=== PATIENT | male | born 1990 | race American Indian/Alaskan Native ===

== ENCOUNTER 2017-09-11 00:57 | Emergency (ER) | payer SELFPAY ==
[2017-09-11 02:03] VITALS: BP 108/67
[2017-09-11] MEDS ORDERED: XYLOCAINE 1% MPF 5 mL INFILTRATI ONE (05:28)
[2017-09-11] MEDS ORDERED: ROCEPHIN IM ONE (05:28)
[2017-09-11] MEDS ORDERED: MOTRIN PO ONE (05:28)
--- NOTE | 2017-09-11 05:29 | Emergency Department Report ---
- General Chief complaint: Skin/Abscess/Foreign Body Stated complaint: FLUIDCHEST FROM NIPPLE PIERCING Time Seen by Provider: 09/11/17 04:26 Source: patient, family Mode of arrival: Ambulatory Limitations: No Limitations - History of Present Illness Initial comments: Patient reports that he had nipple ring in for 4 years and he has injury at the gym and differing came out and he had soreness to the side but has been progressively getting worse over the last 4 days. Positive for pain, swelling, redness. Negative fever or chills, negative shortness of breath or chest pain. Positive for chest wall pain. Denies taking any medication and reports pain is 3-4 at 10. Pain only with touch and and no pain without touch. MD complaint: abscess/boil Onset/Timin -: days(s) Tetanus Up to Date: no Location: chest (right breast) Severity: mild Severity scale (0 -10): 4 Quality: other (sore) Consistency: intermittent Improves with: rest Worsens with: palpation Context: other (nipple ring injury) Associated symptoms: denies other symptoms Treatments Prior to Arrival: bandages - Related Data Previous Rx's Medication Instructions Recorded Last Taken Type Cephalexin [Keflex] 500 mg PO Q8HR 10 Days #30 cap 09/11/17 Unknown Rx Ibuprofen [Motrin] 600 mg PO Q8H PRN #12 tablet 09/11/17 Unknown Rx Sulfamethoxazole/Trimethoprim 1 each PO BID 10 Days #20 tablet 09/11/17 Unknown Rx [Bactrim DS TAB] Allergies Allergy/AdvReac Type Severity Reaction Status Date / Time No Known Allergies Allergy Verified 11/21/13 00:25 Abscess Boil HPI - HPI Chief Complaint: Skin/Abscess/Foreign Body Stated Complaint: FLUIDCHEST FROM NIPPLE PIERCING Time Seen by Provider: 09/11/17 04:26 Home Medications: Previous Rx's Medication Instructions Recorded Last Taken Type Cephalexin [Keflex] 500 mg PO Q8HR 10 Days #30 cap 09/11/17 Unknown Rx Ibuprofen [Motrin] 600 mg PO Q8H PRN #12 tablet 09/11/17 Unknown Rx Sulfamethoxazole/Trimethoprim 1 each PO BID 10 Days #20 tablet 09/11/17 Unknown Rx [Bactrim DS TAB] Allergies/Adverse Reactions: Allergies Allergy/AdvReac Type Severity Reaction Status Date / Time No Known Allergies Allergy Verified 11/21/13 00:25 ED Review of Systems ROS: Stated complaint: FLUIDCHEST FROM NIPPLE PIERCING Other details as noted in HPI Constitutional: denies: chills, fever ENT: denies: ear pain, throat pain Respiratory: denies: cough, shortness of breath, SOB with exertion, SOB at rest , stridor, wheezing Cardiovascular: other (chest wall pain). denies: chest pain, palpitations, edema, syncope Endocrine: no symptoms reported Gastrointestinal: denies: nausea, vomiting Musculoskeletal: other (chest wall pain). denies: back pain, joint swelling, arthralgia Skin: other (redness, swelling, boil to right breast). denies: rash, lesions Neurological: denies: headache ED Past Medical Hx - Past Medical History Previous Medical History?: Yes Hx Asthma: Yes - Surgical History Past Surgical History?: No - Family History Family history: hypertension - Social History Smoking Status: Current Every Day Smoker Substance Use Type: Alcohol, Marijuana Other Social History: Patient is single and lives with family - Medications Home Medications: Home Medications Medication Instructions Recorded Confirmed Last Taken Type Cephalexin [Keflex] 500 mg PO Q8HR 10 Days #30 cap 09/11/17 Unknown Rx Ibuprofen [Motrin] 600 mg PO Q8H PRN #12 tablet 09/11/17 Unknown Rx Sulfamethoxazole/Trimethoprim 1 each PO BID 10 Days #20 tablet 09/11/17 Unknown Rx [Bactrim DS TAB] ED Physical Exam - General Limitations: No Limitations General appearance: alert, in no apparent distress - Head Head exam: Present: atraumatic, normocephalic, normal inspection - Eye Eye exam: Present: normal appearance, PERRL, EOMI Pupils: Present: normal accommodation - ENT ENT exam: Present: normal exam, normal orophraynx, mucous membranes moist - Neck Neck exam: Present: normal inspection, full ROM, other (no C-spine tenderness). Absent: tenderness, lymphadenopathy - Respiratory Respiratory exam: Present: normal lung sounds bilaterally, chest wall tenderness (tenderness to palpate right breast at nipple and areola.). Absent: respiratory distress, wheezes, rales, rhonchi, stridor, accessory muscle use, decreased breath sounds, prolonged expiratory - Cardiovascular Cardiovascular Exam: Present: normal rhythm, bradycardia (asymptomatic). Absent : systolic murmur, diastolic murmur - GI/Abdominal GI/Abdominal exam: Present: soft, normal bowel sounds. Absent: distended, tenderness, guarding, rebound, rigid - Extremities Exam Extremities exam: Present: normal inspection, full ROM, normal capillary refill , other (no clubbing, cyanosis or edema. +2 pulses to all extremities.). Absent: tenderness, pedal edema, joint swelling, calf tenderness - Back Exam Back exam: Present: normal inspection, full ROM, other (ambulates without any difficulties). Absent: tenderness, CVA tenderness (R), CVA tenderness (L), muscle spasm, paraspinal tenderness, vertebral tenderness, rash noted - Neurological Exam Neurological exam: Present: alert, oriented X3, normal gait - Psychiatric Psychiatric exam: Present: normal affect, normal mood - Skin Skin exam: Present: warm, dry, rash, erythema, other (abscess and cellulitis right breast) - Expanded Skin Exam Expanded Type of lesion: Present: abscess (erythema) Distribution of rash: chest (right breast areola and nipple) Description of rash: Present: tenderness, erythematous, swelling, fluctuant, indurated. Absent: bullous, petechial, purpuic, crusting, discharge 1 - Patient with abscess cellulitis to right areola and nipple. Tender to palpate positive induration with some air fluctuance. 3x 3 cm area of induration below one by one area of cellulitis. ED Course Vital Signs 09/11/17 09/11/17 01:50 06:16 Temperature 98.4 F Pulse Rate 57 L Respiratory 18 18 Rate Blood Pressure 108/67 O2 Sat by Pulse 98 Oximetry - Reevaluation(s) Reevaluation #1: 09/11/17 07:20 Patient given Rocephin 1 g IM for cellulitis and abscess to right nipple and Areola without any adverse reaction. He was also given Motrin 800 mg by mouth for pain. Pain is controlled. Patient is to receive Boostrix 0.5 mL prior to discharge. - I & D Right Breast Type of Procedure: Complex Site: right breast nipple and Areola Blade Size: 11 I & D Procedure: betadine prep, sterile drapes applied, sterile dressing applied , gauze wick placed Progress: Procedure: Patient with abscess and cellulitis to right nipple and Areola 3 x 3 cm. Under sterile procedure area cleansed with iodine followed by normal saline. One cc of Marcaine 0.25% instilled around the plan area low. #11 blade scalpel used to make less than 0.25 cm incision. Noted large amount of pus from side after incision made. Additional pus expressed from site. Patient still with some indurated area at his areola. Area packed with iodoform packing and sterile dry dressing placed inside. Tetanus vaccine updated and patient to return to the emergency room in 4 days for recheck and removal of packing. - Laceration /Wound Repair Right Breast Wound Location: chest (Rt breast at nipple and Areola) ED Medical Decision Making - Medical Decision Making ED course: Patient and with abscess and cellulitis to his right nipple in the area light that has been ongoing for about 4 days. He said he had nipple appears thin for over 4 years and he was in the gym and had injury and nipple piercing came out and he was to keep the area clean and dry but it became infected. He says it is getting worse and this why he is here today to get some help. Physical findings for 3 cm area that is fluctuant to nipple and indurated without any fluctuance to area light area. Please refer to procedure note for detail on incision and drainage. Patient was given Motrin 800 mg by mouth for pain, Rocephin 1 g by IM for infection and booster 0.5 mL given to update tetanus. I discussed the patient that he is to keep affected area clean and dry and I also discussed diagnosis and treatment plan with him. He knows he will need to apply warm compresses to affected side 3-4 times a day to facilitate soft then. He was instructed not to take packing out of incision that was made. Patient voiced understanding of teaching and discharged home a prescription for Bactrim DS, Keflex and Motrin. I also instructed him to follow up with [facility] tomorrow. Critical care attestation.: If time is entered above; I have spent that time in minutes in the direct care of this critically ill patient, excluding procedure time. ED Disposition Clinical Impression: Cellulitis of breast, Abscess of right breast, Encounter for incision and drainage procedure, Chest wall pain Disposition: [id number] TO HOME OR SELFCARE Is pt being admited?: No Does the pt Need Aspirin: No Condition: Stable Instructions: Breast Abscess Drainage (ED), Cellulitis (ED), Abscess Incision and Drainage (ED), Acute Wound Care (ED), Musculoskeletal Pain (ED) Additional Instructions: Take antibiotic as prescribed Follow-up with your primary care physician in 2 days Keep affected area clean and dry. Apply warm compresses to affected site 3-4 times a day to facilitate drainage of abscess Followed discharge instruction on acute wound care . Please return to emergency room if you develop increasing redness, streaking, fever, swelling, worsening pain otherwise follow-up at primary care physician and return to emergency room in 4 days to have packing in removed. Prescriptions: Cephalexin [Keflex] 500 mg PO Q8HR 10 Days #30 cap Ibuprofen [Motrin] 600 mg PO Q8H PRN #12 tablet PRN Reason: Pain Sulfamethoxazole/Trimethoprim [Bactrim DS TAB] 1 each PO BID 10 Days #20 tablet Referrals: PRIMARY CARE, [Primary Care Provider] - 09/12/17 [facility] [Outside] - 09/12/17 return to ,emergency room [Other] - 3-5 Days (In 4 days for removal of packing in an reevaluation of abscess.) Forms: Work/School Release Form(ED)
[2017-09-11] MEDS ORDERED: BOOSTRIX IM ONE (07:20)
== END 2017-09-11 08:04 | disposition home or self-care (01) ==
LOC: EDBD → ED 00:57
DX: N61.1 Abscess of the breast and nipple (principal); R07.89 Other chest pain; J45.909 Unspecified asthma, uncomplicated; F17.200 Nicotine dependence, unspecified, uncomplicated
CPT/HCPCS: 19020; 90471; 90715; 96372; 99282; J0696

== ENCOUNTER 2017-09-15 12:07 | Emergency (ER) | payer SELFPAY ==
[2017-09-15 13:22] VITALS: BP 136/73
--- NOTE | 2017-09-15 15:55 | Emergency Department Report ---
ED Recheck HPI - General Chief Complaint: Laceration/Recheck/Suture Stated Complaint: WOUND CHECK Time Seen by Provider: 09/15/17 15:46 Source: patient Mode of arrival: Ambulatory Limitations: No Limitations - History of Present Illness Initial Comments: This is a 27-year-old male nontoxic, well nourished in appearance, no acute signs of distress presents to the ED fore abscess packing removal. Patient was seen on 09/11/2017 and an incision and drainage has been performed and a 1/4 packing has been placed. PAtient stated that he is still taking antibiotics that was prescribed to him. Patient stated swelling has decreased. Patient denies any chest pain, shortness of breathe, fever, chills, headache, nausea, vomiting, numbness or tingling. Patient denies any allergies or PMH. MD Complaint: wound re-check Initial Visit For: abscess Returns Today for: wound recheck Symptoms Since Prior Visit: no new symptoms, improved Context: planned re-check Associated Symptoms: none. denies: fever, chills, chest pain, shortness of breath, rash, malaise, nasuea, abdominal pain - Related Data Previous Rx's Medication Instructions Recorded Last Taken Type Cephalexin [Keflex] 500 mg PO Q8HR 10 Days #30 cap 09/11/17 Unknown Rx Ibuprofen [Motrin] 600 mg PO Q8H PRN #12 tablet 09/11/17 Unknown Rx Sulfamethoxazole/Trimethoprim 1 each PO BID 10 Days #20 tablet 09/11/17 Unknown Rx [Bactrim DS TAB] Allergies Allergy/AdvReac Type Severity Reaction Status Date / Time No Known Allergies Allergy Verified 11/21/13 00:25 ED Review of Systems ROS: Stated complaint: WOUND CHECK Other details as noted in HPI Constitutional: denies: chills, fever Eyes: denies: eye pain, eye discharge, vision change ENT: denies: ear pain, throat pain Respiratory: denies: cough, shortness of breath, wheezing Cardiovascular: denies: chest pain, palpitations Endocrine: no symptoms reported Gastrointestinal: denies: abdominal pain, nausea, diarrhea Genitourinary: denies: urgency, dysuria Musculoskeletal: denies: back pain, joint swelling, arthralgia Skin: denies: rash, lesions Neurological: denies: headache, weakness, paresthesias Psychiatric: denies: anxiety, depression Hematological/Lymphatic: denies: easy bleeding, easy bruising ED Past Medical Hx - Past Medical History Previous Medical History?: Yes Hx Asthma: Yes - Surgical History Past Surgical History?: Yes - Social History Smoking Status: Unknown if ever smoked Substance Use Type: None - Medications Home Medications: Home Medications Medication Instructions Recorded Confirmed Last Taken Type Cephalexin [Keflex] 500 mg PO Q8HR 10 Days #30 cap 09/11/17 Unknown Rx Ibuprofen [Motrin] 600 mg PO Q8H PRN #12 tablet 09/11/17 Unknown Rx Sulfamethoxazole/Trimethoprim 1 each PO BID 10 Days #20 tablet 09/11/17 Unknown Rx [Bactrim DS TAB] ED Physical Exam - General Limitations: No Limitations General appearance: alert, in no apparent distress - Head Head exam: Present: atraumatic, normocephalic - Eye Eye exam: Present: normal appearance Pupils: Present: normal accommodation - ENT ENT exam: Present: normal exam, mucous membranes moist - Neck Neck exam: Present: normal inspection, full ROM - Respiratory Respiratory exam: Present: normal lung sounds bilaterally. Absent: respiratory distress - Cardiovascular Cardiovascular Exam: Present: regular rate, normal rhythm. Absent: systolic murmur, diastolic murmur, rubs, gallop - GI/Abdominal GI/Abdominal exam: Present: soft, normal bowel sounds - Rectal Rectal exam: Present: deferred - Extremities Exam Extremities exam: Present: normal inspection - Back Exam Back exam: Present: normal inspection - Neurological Exam Neurological exam: Present: alert, oriented X3 - Psychiatric Psychiatric exam: Present: normal affect, normal mood - Skin Skin exam: Present: warm, dry, intact, normal color. Absent: rash ED Course Vital Signs 09/15/17 13:19 Temperature 98.5 F Pulse Rate 58 L Respiratory 18 Rate Blood Pressure 136/73 O2 Sat by Pulse 96 Oximetry - Reevaluation(s) Reevaluation #1: 09/15/17 15:55 Patient is speaking in full sentences with no signs of distress noted. ED Recheck MDM - Medical Decision Making 05/01 packing has been removed. Patient tolerated well. No pus or driange noted. No swelling. Normal healing process noted. Sterile dressing applied prior to discharge. At time of discharge, the patient does not seem toxic or ill in appearance. No acute signs of distress noted. Patient agrees to discharge treatment plan of care. No further questions noted by the patient. Critical care attestation.: If time is entered above; I have spent that time in minutes in the direct care of this critically ill patient, excluding procedure time. ED Disposition Clinical Impression: Abscess packing removal Disposition: TO HOME OR SELFCARE Is pt being admited?: No Does the pt Need Aspirin: No Condition: Stable Additional Instructions: Follow-up with a primary care doctor in 3-5 days or if symptoms worsen and continue return to emergency room as soon as possible. Continue taking antibiotics as prescribed during your previous visit. Referrals: PRIMARY CARE, [Primary Care Provider] - 3-5 Days KADEEM PRUITT MD [Staff Physician] - 3-5 Days [facility] [Outside] - 3-5 Days [facility] [Outside] - 3-5 Days Forms: Work/School Release Form(ED)
== END 2017-09-15 16:37 | disposition home or self-care (01) ==
LOC: ED 12:07
DX: Z48.00 Encounter for change or removal of nonsurgical wound dressing (principal); J45.909 Unspecified asthma, uncomplicated